=== PATIENT | male | born 1945 ===

== ENCOUNTER 2021-03-07 18:30 | Emergency (ER) | payer SELFPAY ==
[2021-03-07 19:43] LABS: Basophils % (Auto) 0.4 % (0.0-1.8); Eosinophils # (Auto) 0.1 K/mm3 (0.0-0.4); Eosinophils % (Auto) 0.7 % (0.0-4.3); Hematocrit 43.9 % (35.5-45.6); Hemoglobin 15.1 gm/dl (11.8-15.2); Lymphocytes # (Auto) 2.1 K/mm3 (1.2-5.4); Lymphocytes % (Auto) 24.7 % (13.4-35.0); Mean Corpuscular HGB Conc 34 % (32-34); Mean Corpuscular Volume 96 fl (84-94); Monocytes # (Auto) 0.5 K/mm3 (0.0-0.8); Monocytes % (Auto) 6.3 % (0.0-7.3); Platelet Count 208 K/mm3 (140-440); Red Blood Count 4.57 M/mm3 (3.65-5.03); Red Cell Distribution Width 12.5 % (13.2-15.2)
[2021-03-07 19:58] LABS: Calcium 9.6 mg/dL (8.4-10.2)
[2021-03-08] MEDS ORDERED: SODIUM CHLORIDE 0.9% 1000 ML 1,000 ML IV ONE ×2 (00:36→00:37)
[2021-03-08] MEDS ORDERED: INSULIN REGULAR, HUMAN 100 UNITS/1 ML IV ONE (00:37)
--- NOTE | 2021-03-08 00:45 | Emergency Department Report ---
ED Dizziness HPI - General Chief Complaint: Hyperglycemia Stated Complaint: DIABETIC SUGAR ELEVATED Time Seen by Provider: 03/08/21 00:36 Source: patient, family Mode of arrival: Ambulatory Limitations: Language Barrier (Family friend at the bedside provided interpretation) - History of Present Illness Initial Comments: Chief complaint: His sugar is high HPI: This is a new 75-year-old male with history of diabetes mellitus who presents with elevated blood sugar. He felt mildly lightheaded. He has had frequent urination and thirst. He is visiting from [place] for a few weeks. He plans to return home in a few weeks. He has run out of Metformin. He does not take insulin. Complaint: dizziness, lightheadedness -: Gradual, days(s) (Several days) Timing: gradual onset Description: lightheadedness History of Same: No History of Trauma: No Improves With: nothing Worsens With: nothing Associated Symptoms: other (Thirst frequent urination) - Related Data Previous Rx's Medication Instructions Recorded Last Taken Type Metformin HCl [metFORMIN] 1,000 mg PO BID 90 Days #180 tablet 03/08/21 Unknown Rx Allergies Allergy/AdvReac Type Severity Reaction Status Date / Time No Known Allergies Allergy Unverified 03/07/21 19:13 ED Review of Systems ROS: Stated complaint: DIABETIC SUGAR ELEVATED Other details as noted in HPI Comment: All other systems reviewed and negative Constitutional: denies: fever, malaise Respiratory: denies: cough, shortness of breath Cardiovascular: denies: chest pain Endocrine: increased thirst, increased urine Gastrointestinal: denies: abdominal pain, nausea, vomiting ED Past Medical Hx - Past Medical History Previous Medical History?: Yes Hx Diabetes: Yes - Surgical History Past Surgical History?: No - Social History Smoking Status: Never Smoker Substance Use Type: Alcohol - Medications Home Medications: Home Medications Medication Instructions Recorded Confirmed Last Taken Type Metformin HCl [metFORMIN] 1,000 mg PO BID 90 Days #180 tablet 03/08/21 Unknown Rx ED Physical Exam - General Limitations: Language Barrier General appearance: alert, in no apparent distress, other (Appears well nontoxic) - Head Head exam: Present: atraumatic, normocephalic - Eye Eye exam: Present: normal appearance - ENT ENT exam: Present: mucous membranes moist - Neck Neck exam: Present: normal inspection, full ROM - Respiratory Respiratory exam: Present: normal lung sounds bilaterally. Absent: respiratory distress, wheezes, rales, rhonchi - Cardiovascular Cardiovascular Exam: Present: regular rate, normal rhythm, normal heart sounds. Absent: systolic murmur, diastolic murmur, rubs, gallop - GI/Abdominal GI/Abdominal exam: Present: soft, normal bowel sounds. Absent: distended, tenderness, guarding, rebound - Rectal Rectal exam: Present: deferred - Extremities Exam Extremities exam: Present: normal inspection - Neurological Exam Neurological exam: Present: alert, oriented X3 - Psychiatric Psychiatric exam: Present: normal affect, normal mood - Skin Skin exam: Present: warm, dry, intact, normal color. Absent: rash ED Course Vital Signs 03/07/21 03/08/21 03/08/21 19:13 00:34 00:35 Temperature 97.9 F Pulse Rate 82 74 73 Respiratory 18 12 14 Rate Blood Pressure 138/92 160/91 O2 Sat by Pulse 97 95 96 Oximetry 03/08/21 03/08/21 03/08/21 00:45 01:01 01:15 Temperature Pulse Rate 75 70 68 Respiratory 15 13 17 Rate Blood Pressure 160/91 130/68 130/68 O2 Sat by Pulse 98 98 98 Oximetry 03/08/21 03/08/21 03/08/21 01:31 02:01 02:31 Temperature Pulse Rate 73 73 71 Respiratory 12 15 12 Rate Blood Pressure 128/73 106/73 130/73 O2 Sat by Pulse 98 99 98 Oximetry ED Medical Decision Making - Lab Data Result diagrams: 03/07/21 19:23 03/07/21 19:23 - Medical Decision Making Acute hyperglycemia due to diabetes mellitus: Patient received IV hydration and IV insulin. Patient prescribed Metformin his home medication. Discharged home with follow-up to outpatient medical physician. Vital Signs - 24 hr 03/07/21 03/08/21 03/08/21 19:13 00:34 00:35 Temperature 97.9 F Pulse Rate 82 74 73 Respiratory 18 12 14 Rate Blood Pressure 138/92 160/91 O2 Sat by Pulse 97 95 96 Oximetry 03/08/21 03/08/21 03/08/21 00:45 01:01 01:15 Temperature Pulse Rate 75 70 68 Respiratory 15 13 17 Rate Blood Pressure 160/91 130/68 130/68 O2 Sat by Pulse 98 98 98 Oximetry 03/08/21 03/08/21 03/08/21 01:31 02:01 02:31 Temperature Pulse Rate 73 73 71 Respiratory 12 15 12 Rate Blood Pressure 128/73 106/73 130/73 O2 Sat by Pulse 98 99 98 Oximetry Critical care attestation.: If time is entered above; I have spent that time in minutes in the direct care of this critically ill patient, excluding procedure time. ED Disposition Clinical Impression: Acute hyperglycemia, Diabetes mellitus Disposition: - TO HOME OR SELFCARE Is pt being admited?: No Does the pt Need Aspirin: No Condition: Stable Instructions: Diabetes Mellitus Type 2 in Adults (ED), Tips for Eating Away From Home If You Have Diabetes Prescriptions: Metformin HCl [metFORMIN] 1,000 mg PO BID 90 Days #180 tablet Referrals: ROSE MARY DILLON MD [Staff Physician] - 3-5 Days Print Language: MONEGASQUE
[2021-03-08 02:46] VITALS: BP 130/73
== END 2021-03-08 03:01 | disposition home or self-care (01) ==
LOC: ED 18:30
DX: E11.65 Type 2 diabetes mellitus with hyperglycemia (principal); Z79.899 Other long term (current) drug therapy
CPT/HCPCS: 36415; 80053; 82805; 82962; 85025; 96361; 96374; 99283; J7030; J1815